=== PATIENT | male | born 1970 | race African-American/Black ===

== ENCOUNTER 2021-07-12 15:59 | Emergency (ER) | payer MEDICAID ==
[~2021-07-12] VITALS: Ht 167.6 cm; Wt 79.0 kg
[2021-07-12] MEDS ORDERED: SIMV-46 PO (16:21)
[2021-07-12] MEDS ORDERED: CHLO50TA PO (16:21)
[2021-07-12] MEDS ORDERED: AMLO10TA4 PO (16:21)
[2021-07-12] MEDS ORDERED: LOSA100T32 PO (16:21)
[2021-07-12] MEDS ORDERED: CLON-457 PO (16:21)
[2021-07-12 17:41] LABS: CHLORIDE 105 mEq/L (98-107)
[2021-07-12] MEDS ORDERED: POTASSIUM CHLORIDE INJ 40 MEQ in DEXT 5% WATER 250 ML IV ONE (18:00)
[2021-07-12] MEDS ORDERED: POTASSIUM-SODIUM PHOSPHATE POWDER PACKET PO ONE (18:00)
[2021-07-12 18:30] VITALS: BP 170/113
[2021-07-12 18:50] LABS: BASOPHILS % 0.9 % (0.0-2.0); EOSINOPHILS % 12.8 % (0.0-5.0); HEMATOCRIT. 41.5 % (42.0-52.0); HEMOGLOBIN. 14.5 g/dL (14.0-18.0); LYMPHOCYTES % 49.3 % (20.0-50.0); MEAN CORPUSCULAR HEMOGLOBIN 30.3 pg (28.0-32.0); MEAN CORPUSCULAR VOLUME 86.9 fL (80.0-94.0); MEAN PLATELET VOLUME 8.3 fl (7.4-10.4); MONOCYTES % 6.9 % (2.0-8.0); NEUTROPHILS % 30.1 % (40.0-76.0); PLATELET 244 x1000/uL (130-400); RED BLOOD CELL COUNT 4.78 mill/uL (4.7-6.1); RED CELL DISTRIBUTION WIDTH 13.8 % (11.6-14.6)
[2021-07-13 00:59] LABS: CHLORIDE 108 mEq/L (98-107)
== END 2021-07-13 01:16 | disposition home or self-care (01) ==
LOC: ER 15:59 → EDBEDREQ 19:01 → EDBEDREQTM 19:01 → ENRESERV 20:02 → CANRESERV 20:02 → ER 07-13 01:16 → CANBEDREQ 07-13 01:52
DX: E87.6 Hypokalemia (principal); I10 Essential (primary) hypertension; J45.909 Unspecified asthma, uncomplicated
CPT/HCPCS: 36415; 80048; 83735; 85025; 93005; 96365; 99284; J3480; J7060

== ENCOUNTER 2022-04-08 12:58 | Emergency (ER) | payer MEDICAID, OTHER ==
[~2022-04-08] VITALS: Ht 167.6 cm; Wt 78.0 kg
[~2022-04-08 12:58] MED LIST: AMLO10TA4 PO; CHLO50TA PO; CLON-457 PO; LOSA100T32 PO; SIMV-46 PO
[2022-04-08 15:01] LABS: BASOPHILS % 1.3 % (0.0-2.0); EOSINOPHILS % 9.6 % (0.0-5.0); HEMATOCRIT. 42.8 % (42.0-52.0); HEMOGLOBIN. 14.7 g/dL (14.0-18.0); LYMPHOCYTES % 44.9 % (20.0-50.0); MEAN CORPUSCULAR HEMOGLOBIN 29.2 pg (28.0-32.0); MEAN CORPUSCULAR VOLUME 85.2 fL (80.0-94.0); MEAN PLATELET VOLUME 8.6 fl (7.4-10.4); MONOCYTES % 7.4 % (2.0-8.0); NEUTROPHILS % 36.8 % (40.0-76.0); PLATELET 218 x1000/uL (130-400); RED BLOOD CELL COUNT 5.03 mill/uL (4.7-6.1); RED CELL DISTRIBUTION WIDTH 13.7 % (11.6-14.6)
[2022-04-08 15:09] LABS: CHLORIDE 105 mEq/L (98-107)
[2022-04-08] MEDS ORDERED: POTASSIUM CHLORIDE 20MEQ TABLET SR PO ONE (18:30)
[2022-04-08] MEDS ORDERED: POTA-205 MT (19:28)
[2022-04-08 19:45] VITALS: BP 135/96
== END 2022-04-08 20:30 | disposition home or self-care (01) ==
LOC: ER 12:58
DX: R00.2 Palpitations (principal); I10 Essential (primary) hypertension; E87.6 Hypokalemia; J45.909 Unspecified asthma, uncomplicated; Z79.899 Other long term (current) drug therapy
CPT/HCPCS: 36415; 71045; 80053; 83880; 84443; 84484; 85025; 93005; 99285

== ENCOUNTER 2024-12-23 18:14 | Emergency (ER) | payer MEDICAID, OTHER ==
[~2024-12-23] VITALS: Ht 167.6 cm; Wt 80.7 kg
[~2024-12-23 18:14] MED LIST changes: +AMLO-905 PO; -AMLO10TA4 PO; -CLON-457 PO; +CLON-493 PO; -LOSA100T32 PO; +LOSA100T33 PO; +POTA-205 MT
[2024-12-23 18:20] VITALS: O2SAT 100
[2024-12-23 19:03] LABS: BASOPHILS % 1.1 % (0.0-2.0); EOSINOPHILS % 8.4 % (0.0-5.0); HEMATOCRIT. 43.1 % (42.0-52.0); HEMOGLOBIN. 14.7 g/dL (14.0-18.0); LYMPHOCYTES % 55.7 % (20.0-50.0); MEAN CORPUSCULAR HEMOGLOBIN 28.8 pg (28.0-32.0); MEAN CORPUSCULAR HGB CONC 34.2 g/dL (31.0-37.0); MEAN CORPUSCULAR VOLUME 84.3 fL (80.0-94.0); MEAN PLATELET VOLUME 8.5 fl (7.4-10.4); MONOCYTES % 5.6 % (2.0-8.0); NEUTROPHILS % 29.2 % (40.0-76.0); PLATELET 207 x1000/uL (130-400); RED BLOOD CELL COUNT 5.11 mill/uL (4.7-6.1); RED CELL DISTRIBUTION WIDTH 13.7 % (11.6-14.6); WHITE BLOOD COUNT 6.9 x1000/uL (4.5-11.0)
[2024-12-23 19:14] LABS: CHLORIDE 106 mEq/L (98-107); POTASSIUM 2.9 mEq/L (3.5-5.1); SODIUM 141 mEq/L (136-145)
[2024-12-23 19:15] LABS: CALCIUM 9.1 mg/dL (8.7-10.4); CARBON DIOXIDE 28 mEq/L (21-32)
[2024-12-23 19:20] LABS: CREATININE 0.9 mg/dL (0.6-1.3); GLUCOSE 163 mg/dL (70-105); UREA NITROGEN BLOOD 12 mg/dL (9-23)
[2024-12-23] MEDS: POTASSIUM CHLORIDE 20MEQ TABLET SR PO ONE (19:57)
[2024-12-23] MEDS: METOPROLOL TARTRATE 50MG TABLET PO ONE (21:53)
[2024-12-23 22:19] VITALS: BP 179/111; PULSE 79; RESP 20; TEMP 37.1; O2SAT 100
== END 2024-12-23 22:28 | disposition home or self-care (01) ==
LOC: ER 18:14
DX: I10 Essential (primary) hypertension (principal); E11.9 Type 2 diabetes mellitus without complications; J45.909 Unspecified asthma, uncomplicated; Z79.899 Other long term (current) drug therapy
CPT/HCPCS: 36415; 80048; 85025; 93005; 99284